=== PATIENT | male | born 1970 | race Caucasian/White ===

== ENCOUNTER 2024-04-05 15:43 | Outpatient (CLI) | payer BC | END 2024-04-05 15:44 | disposition home or self-care (01) | LOC: BICRAD 15:43 | PROVIDERS: ATTEND Internal Medicine | DX: R06.00 Dyspnea, unspecified (principal) | CPT/HCPCS: 71046 ==

== ENCOUNTER 2025-04-11 12:42 | Outpatient (CLI) | payer BC | END 2025-04-11 12:43 | disposition home or self-care (01) | LOC: RAD 12:42 | DX: M54.50 Low back pain, unspecified (principal); M13.0 Polyarthritis, unspecified; M47.816 Spondylosis without myelopathy or radiculopathy, lumbar region; M47.817 Spondylosis without myelopathy or radiculopathy, lumbosacral region; M48.061 Spinal stenosis, lumbar region without neurogenic claudication; M48.07 Spinal stenosis, lumbosacral region; M40.56 Lordosis, unspecified, lumbar region; Z98.1 Arthrodesis status | CPT/HCPCS: 72100 ==